=== PATIENT | female | born 1965 | race Caucasian/White ===

== ENCOUNTER 2020-07-18 11:18 | Day surgery (SDC) | payer OTHER ==
[~2020-07-18] VITALS: Ht 144.8 cm; Wt 109.1 kg
[~2020-07-18 11:18] MED LIST: SODIUM CHLORIDE 0.9% 1,000 ML ONE
[2020-07-18] MEDS ORDERED: LIDOCAINE/PF 2% 5 ML VIAL IM ONE (11:19)
[2020-07-18] MEDS ORDERED: PROPOFOL 1% 20 ML VIAL IVP ONE (11:19)
[2020-07-18 12:20] LABS: COVID AG,FIA SOURCE NASAL SWAB
[2020-07-18] MEDS ORDERED: LORA10TA7 PO (12:23)
[2020-07-18] MEDS ORDERED: ALPR-341 PO (12:23)
[2020-07-18] MEDS ORDERED: CHOL100044 PO (12:23)
[2020-07-18] MEDS ORDERED: HYDR25TA2 PO (12:23)
[2020-07-18] MEDS ORDERED: DIPH-654 PO (12:23)
[2020-07-18] MEDS ORDERED: OXYB5XL PO (12:23)
[2020-07-18] MEDS ORDERED: IBUP-2070 PO (12:23)
[2020-07-18] MEDS ORDERED: BACL10TA PO ×2 (12:23)
[2020-07-18] MEDS ORDERED: SERT-162 PO (12:23)
[2020-07-18] MEDS ORDERED: DICY20TA2 PO (12:23)
[2020-07-18] MEDS ORDERED: PANT-31 PO (12:23)
[2020-07-18] MEDS ORDERED: LISI-894 PO (12:23)
[2020-07-18] MEDS ORDERED: MECL-169 PO (12:23)
[2020-07-18] MEDS ORDERED: ACYC200C24 PO (12:24)
[2020-07-18] MEDS ORDERED: SODIUM CHLORIDE 0.9% 1,000 ML IV ONE (12:30)
[2020-07-18 12:38] LABS: GLUCOMETER DEV NAME(LOC) SDS.; GLUCOSE,POINT OF CARE 210 MG/DL (70-110)
== END 2020-07-18 14:50 | disposition home or self-care (01) ==
LOC: SURGERY 11:18
PROVIDERS: ATTEND Student in an Organized Health Care Education/Training Program
DX: R19.7 Diarrhea, unspecified (principal); K57.30 Diverticulosis of large intestine without perforation or abscess without bleeding; K64.8 Other hemorrhoids; K64.4 Residual hemorrhoidal skin tags; K29.50 Unspecified chronic gastritis without bleeding; K21.00 Gastro-esophageal reflux disease with esophagitis, without bleeding; K44.9 Diaphragmatic hernia without obstruction or gangrene; K31.89 Other diseases of stomach and duodenum; K21.9 Gastro-esophageal reflux disease without esophagitis; E11.40 Type 2 diabetes mellitus with diabetic neuropathy, unspecified; E11.22 Type 2 diabetes mellitus with diabetic chronic kidney disease; K31.7 Polyp of stomach and duodenum; G80.9 Cerebral palsy, unspecified; I12.9 Hypertensive chronic kidney disease with stage 1 through stage 4 chronic kidney disease, or unspecified chronic kidney disease; G89.29 Other chronic pain; N18.30 Chronic kidney disease, stage 3 unspecified; G43.909 Migraine, unspecified, not intractable, without status migrainosus; E66.9 Obesity, unspecified; J45.909 Unspecified asthma, uncomplicated; F32.9 Major depressive disorder, single episode, unspecified; Z79.899 Other long term (current) drug therapy; Z98.890 Other specified postprocedural states; Z72.89 Other problems related to lifestyle; Z90.49 Acquired absence of other specified parts of digestive tract
CPT/HCPCS: 43239; 45378; 82962; 87426; 88305; 88312; 88313; C1769; C9803; J2704; J3490; J7030